=== PATIENT | female | born 1975 | race Caucasian/White ===

== ENCOUNTER 2022-07-05 13:33 | Outpatient (CLI) | payer BC, SELFPAY | END 2022-07-05 13:34 | disposition home or self-care (01) | LOC: LBO 13:35 | DX: N18.31 Chronic kidney disease, stage 3a (principal) | CPT/HCPCS: 36415; 80076 ==

== ENCOUNTER 2022-09-05 04:25 | Outpatient (CLI) | payer BC, SELFPAY ==
[2022-09-05 08:08] LABS: Abs Immature Grans 0.02 10^3/uL (0.0-0.06); Absolute Basophil Count 0.02 10^3/uL (0.0-0.2); Absolute Eosinophil Count 0.18 10^3/uL (0.0-0.7); Absolute Lymphocyte Count 1.65 10^3/uL (1.2-3.4); Absolute Monocyte Count 0.44 10^3/uL (0.1-0.8); Absolute Neutrophil Count 4.31 10^3/uL (1.2-6.7); Basophils % 0.3; Eosinophils % 2.7; HCT 41.1 % (36.0-46.0); HGB 14.1 g/dL (11.2-15.7); Immature Grans % 0.3; Lymphocytes % 24.9; MCH 29.3 pg (27.0-33.0); MCHC 34.3 % (32.0-36.0); MCV 85 fL (80-95); MPV 9.8 fL (8.0-11.0); Monocytes % 6.6; Neutrophils % 65.2; Platelet Count 292 10^3/uL (130-400); RBC 4.82 10^6/uL (3.93-5.22); RDW 12.2 % (11.7-14.6); RDW-SD 37.9 fL; WBC 6.62 10^3/uL (4.4-10.8)
[2022-09-05 08:13] LABS: Bilirubin Negative (Negative); Blood Negative (Negative); Clarity Clear (Clear); Glucose Negative (Negative); Ketones Negative (Negative); Leukocyte Esterase Trace (Negative); Nitrite Negative (Negative); Specific Gravity 1.025 (1.005-1.025); Urobilinogen 0.2 EU/dL (Up TO 0.2)
[2022-09-05 08:39] LABS: COMMENT (LAB VIEW ONLY) 152.91 mg/dL; PROTEIN < 6.0 mg/dL
[2022-09-05 08:41] LABS: COMMENT (LAB VIEW ONLY) 153.21 mg/dL; Microalb ug/mg Crea 2.7 ug/mg Cr
[2022-09-05 09:09] LABS: Anion Gap 6.8 mmol/L (3-11); CO2 28.2 mmol/L (21.0-32.0); Chloride 104 mmol/L (98-107); Potassium 4.2 mmol/L (3.5-5.1); Sodium 139 mmol/L (136-145)
[2022-09-05 09:11] LABS: Albumin 3.9 g/dL (3.4-5.0); Anion Gap 8.3 mmol/L (3-11); BUN 13 mg/dL (7-18); CO2 27.7 mmol/L (21.0-32.0); Calcium 9.4 mg/dL (8.5-10.1); Chloride 104 mmol/L (98-107); Estimated GFR 70.36 (mL/min/1.73m2); Glucose 85 mg/dL (74-106); Potassium 4.3 mmol/L (3.5-5.1); Sodium 140 mmol/L (136-145)
[2022-09-05 09:23] LABS: PHOSPHORUS 2.4 mg/dL (2.6-4.7)
== END 2022-09-05 04:26 | disposition home or self-care (01) ==
LOC: LBO 04:25
PROVIDERS: Visit Provider Family Medicine
DX: N18.31 Chronic kidney disease, stage 3a (principal)
CPT/HCPCS: 36415; 80051; 80069; 81003; 82043; 82565; 82570; 84156; 85025